=== PATIENT | female | born 1985 | race Caucasian/White ===

== ENCOUNTER 2017-09-27 08:46 | Emergency (ER) | payer OTHER ==
[2017-09-27 08:52] VITALS: BMI 24.7
[2017-09-27 08:57] VITALS: O2SAT 100
[2017-09-27] MEDS ORDERED: Sodium Chloride 0.9% 1,000 ML IV ONE (09:07)
--- NOTE | 2017-09-27 09:11 | C.PDOC ---
History Of Present Illness 32 year old female with a history of HTN, Right side kidney stones, presents to the ED with complaints of right sided flank pain gradually developed since yesterday associated with urinary frequency, dysuria. Pt admits, similar sx in past due to her previous kidney stone. Denies high fever, chills, recent illness , sore throat, CP, SOB, abd. pain, nausea, vomiting, hematuria, or any other complaints at this time. Ambulate to ED, appears in pain. Time Seen by Provider: 09/27/17 08:56 Chief Complaint (Nursing): Female Genitourinary History Per: Patient Past Medical History Reviewed: Historical Data, Nursing Documentation, Vital Signs Vital Signs: Last Vital Signs Temp 99.0 F 09/27/17 08:52 Pulse 136 H 09/27/17 08:52 Resp 17 09/27/17 08:52 BP 142/107 H 09/27/17 08:52 Pulse Ox 100 09/27/17 11:18 - Medical History PMH: HTN, Kidney Stones Family History: States: Unknown Family Hx - Social History Hx Tobacco Use: No Hx Alcohol Use: No Hx Substance Use: No - Immunization History Hx Tetanus Toxoid Vaccination: No Hx Influenza Vaccination: No Hx Pneumococcal Vaccination: No Review Of Systems Except As Marked, All Systems Reviewed And Found Negative. Constitutional: Negative for: Fever, Chills ENT: Negative for: Ear Pain, Ear Discharge, Nose Discharge, Throat Pain, Throat Swelling Cardiovascular: Negative for: Chest Pain, Palpitations Respiratory: Negative for: Cough, Shortness of Breath, Wheezing Gastrointestinal: Positive for: Nausea. Negative for: Vomiting, Abdominal Pain , Diarrhea Genitourinary: Positive for: Dysuria, Frequency. Negative for: Incontinence, Hematuria, Vaginal Discharge, Vaginal Bleeding Musculoskeletal: Positive for: Back Pain (Right flank) Neurological: Negative for: Weakness, Numbness, Altered Mental Status, Headache , Dizziness Physical Exam - Physical Exam Appears: Well, Non-toxic, No Acute Distress Skin: Normal Color, Warm, Dry, No Rash Eye(s): bilateral: PERRL Nose: No Flaring, No Discharge Oral Mucosa: Moist, No Drooling Throat: No Erythema, No Drooling Neck: Trachea Midline, Supple Cardiovascular: Rhythm Regular, No Murmur, No JVD Respiratory: Normal Breath Sounds, No Stridor, No Wheezing Gastrointestinal/Abdominal: Soft, Tenderness (mild suprapubic), No Distention, No Guarding, No Rebound Back: No CVA Tenderness, Other (Right flank tenderness) Extremity: Normal ROM, No Deformity, No Swelling Neurological/Psych: Oriented x3, Normal Speech ED Course And Treatment - Laboratory Results Result Diagrams: 09/27/17 09:33 09/27/17 09:33 Urine POC: Negative O2 Sat by Pulse Oximetry: 100 Pulse Ox Interpretation: Normal - CT Scan/US CT abd/pelvis Other Rad Studies (CT/US): Radiology Report Reviewed CT/US Interpretation: CT abdomen and pelvis. History: Right flank pain. Comparison: None available. Technique: Multiple contiguous axial images were performed through the abdomen and pelvis without the use of intravenous contrast. Subsequently, sagittal and coronal reformatted images were obtained. This CT exam was performed using one or more of the following dose reduction techniques: Automated exposure control, adjustment of the mA and/or kV according to patient size, and/or use of iterative reconstruction technique. Findings: Lung bases are preserved. No pleural or pericardial effusion. Question mild fatty infiltration of the liver. Clinical correlation. Gallbladder is grossly preserved. Spleen is preserved. Adrenal glands are preserved. Pancreas is preserved. Upper abdominal bowel is preserved. Right kidney: Moderate right renal hydronephrosis with perinephric fat stranding. There is a suggestion of a 6 millimeter calculus at the level of the distal right ureter concerning for possible obstructive calculus with resultant right renal hydronephrosis ; alternatively, this may represent a prominent vascular calcification. Clinical correlation. Additional punctate 1 millimeter calculus in the midpole of the right kidney. Left Kidney: Punctate 1 millimeter nonobstructive calculus in the midpole left kidney. No hydronephrosis. Thick- walled urinary bladder which may represent an underlying cystitis. Clinical correlation. Heterogeneous uterus and bilateral adnexa. Prominent fecal retention in the distal colon and rectum. Relative areas of underdistention in the transverse and descending colon. Appendix is partially imaged best seen on series 3, image 118, grossly preserved. Few shotty para-aortic and inguinal lymph nodes. Few shotty mesenteric lymph nodes. Mild degenerative changes in the spine. Impression: 1. Moderate right renal hydronephrosis with perinephric fat stranding. There is a suggestion of a 6 millimeter calculus at the level of the distal right ureter concerning for possible obstructive calculus with resultant right renal hydronephrosis ; alternatively, this may represent a prominent vascular calcification. Clinical correlation. In addition , if there is concern for pyelonephritis, consider correlation with a contrast- enhanced CT scan. 2. Thick-walled urinary bladder which may represent an underlying cystitis. Clinical correlation. Progress Note: Pt was OBS in ED for 2 hours and reports moderate improvement in sx. On re-evaluation, pt is aferile, hemodynamicaly stable. PulseOx 100% RA. ENT: no acute findings. neck: Supple, (-) meninegal sign, (-) carotid bruits. Lungs: CTA B/L, BS equal B/L. Abd: benign,(-) guarding, (-) rebound. Back: (- ) CVA tenderness. Neurologicaly intact. UA review (+) WBC, RBC. Blood work , mild leukocytosis with left shift. CT abd/pelvis: (+) 6 millimeter calculus at the level of the distal right ureter concerning for possible obstructive calculus with resultant right renal hydronephrosis ; alternatively, this may represent a prominent vascular calcification. Pt has clinical findings c/w UTI , Right kidney stone. Patient advisedon course of ds and ref. to f/u with Urology, PMD in 1-2 days for re-eavl. return to ED if any worsening or new changes. Disposition Counseled Patient/Family Regarding: Studies Performed, Diagnosis, Need For Followup, Rx Given - Disposition Referrals: Jeffrey Mejía MD [Staff Provider] - Disposition: HOME/ ROUTINE Disposition Time: 11:00 Condition: STABLE Additional Instructions: Encourage fluids Take medication as prescribed Follow up with PMD, Urology in 1-2 days for re-evaluation. Return to ED if any worsening or new changes. Prescriptions: Cefdinir [Omnicef] 300 mg PO BID #14 cap Tamsulosin [Flomax] 0.4 mg PO DAILY #14 cap traMADol [Ultram] 50 mg PO TID #7 tab Instructions: Urinary Tract Infections in Adults, Kidney Stones in Adults Forms: [employer] (Latvian) - Clinical Impression Clinical Impression: UTI (urinary tract infection), Kidney stone
[2017-09-27 09:24] LABS: HCG,QUALITATIVE URINE NEGATIVE (NEGATIVE); SQUAMOUS EPITHIAL 8 /hpf (0-5); URINE BACTERIA OCC (<OCC); URINE BILIRUBIN NEGATIVE (NEGATIVE); URINE BLOOD 3+ (NEGATIVE); URINE CLARITY Hazy (Clear); URINE COLOR Amber (YELLOW); URINE GLUCOSE (UA) NORMAL (Normal); URINE LEUKOCYTE ESTERASE 3+ Leu/uL (Negative); URINE PROTEIN 1+ mg/dL (NEGATIVE); URINE UROBILINOGEN NORMAL mg/dL (0.2-1.0)
[2017-09-27 09:45] LABS: BASO % 0.3 % (0.0-2.0); EOS % 0.3 % (0.0-4.0); HEMOGLOBIN 13.4 g/dL (11.0-16.0); LYMPH # 1.2 K/uL (1.0-4.3); LYMPH % 9.8 % (20.0-40.0); MEAN CELL VOLUME 87.5 fL (81.0-99.0); MEAN CORPUSCULAR HEMOGLOBIN 29.9 pg (27.0-31.0); MEAN CORPUSCULAR HGB CONC 34.2 g/dL (33.0-37.0); MEAN PLATELET VOLUME 7.3 fL (7.2-11.7); MONO # 1.1 K/uL (0.0-0.8); MONO % 8.7 % (0.0-10.0); NEUT # 10.2 K/uL (1.8-7.0); NEUT % 80.9 % (50.0-75.0); PLATELET COUNT 287 K/uL (130-400); RBC 4.49 Mil/uL (3.80-5.20); RED CELL DISTRIBUTION WIDTH 13.2 % (11.5-14.5); WHITE BLOOD COUNT 12.7 K/uL (4.8-10.8)
[2017-09-27] MEDS ORDERED: cefTRIAXone IV 1 gm in Dextros 50 ML IVPB ONE (09:52)
[2017-09-27] MEDS ORDERED: Sodium Chloride 0.9% 1,000 ML ONE (09:52)
[2017-09-27 09:56] LABS: ALBUMIN 4.2 g/dL (3.5-5.0); CALCIUM 9.3 mg/dl (8.6-10.4); GFR AFRICAN-AMERICAN > 60; GFR NON-AFRICAN AMERICAN > 60
[2017-09-27 10:00] LABS: ALT/SGPT 18 U/L (9-52); AST/SGOT 20 U/L (14-36); BLOOD UREA NITROGEN 7 mg/dL (7-17)
[2017-09-27 10:05] LABS: BANDS 2 % (0-2); LYMPHOCYTE 7 % (20-40); MONOCYTE 9 % (0-10); NEUTROPHIL 82 % (50-75); PLATELET ESTIMATE NORMAL (NORMAL); TOTAL CELLS COUNTED 100
--- NOTE | 2017-09-27 10:51 | CT ---
CT abdomen and pelvis History: Right flank pain. Comparison: None available. Technique: Multiple contiguous axial images were performed through the abdomen and pelvis without the use of intravenous contrast. Subsequently, sagittal and coronal reformatted images were obtained. This CT exam was performed using one or more of the following dose reduction techniques: Automated exposure control, adjustment of the mA and/or kV according to patient size, and/or use of iterative reconstruction technique. Findings: Lung bases are preserved. No pleural or pericardial effusion. Question mild fatty infiltration of the liver. Clinical correlation. Gallbladder is grossly preserved. Spleen is preserved. Adrenal glands are preserved. Pancreas is preserved. Upper abdominal bowel is preserved. Right kidney: Moderate right renal hydronephrosis with perinephric fat stranding. There is a suggestion of a 6 millimeter calculus at the level of the distal right ureter concerning for possible obstructive calculus with resultant right renal hydronephrosis ; alternatively, this may represent a prominent vascular calcification. Clinical correlation. Additional punctate 1 millimeter calculus in the midpole of the right kidney. Left Kidney: Punctate 1 millimeter nonobstructive calculus in the midpole left kidney. No hydronephrosis. Thick-walled urinary bladder which may represent an underlying cystitis. Clinical correlation. Heterogeneous uterus and bilateral adnexa. Prominent fecal retention in the distal colon and rectum. Relative areas of underdistention in the transverse and descending colon. Appendix is partially imaged best seen on series 3, image 118, grossly preserved. Few shotty para-aortic and inguinal lymph nodes. Few shotty mesenteric lymph nodes. Mild degenerative changes in the spine. Impression: 1. Moderate right renal hydronephrosis with perinephric fat stranding. There is a suggestion of a 6 millimeter calculus at the level of the distal right ureter concerning for possible obstructive calculus with resultant right renal hydronephrosis ; alternatively, this may represent a prominent vascular calcification. Clinical correlation. In addition, if there is concern for pyelonephritis, consider correlation with a contrast-enhanced CT scan. 2. Thick-walled urinary bladder which may represent an underlying cystitis. Clinical correlation.
[2017-09-27 11:37] VITALS: BP 116/79; PULSE 103; RESP 18; TEMP 99.1
== END 2017-09-27 11:37 | disposition home or self-care (01) ==
LOC: C.ER 08:46
DX: N13.2 Hydronephrosis with renal and ureteral calculous obstruction (principal); N39.0 Urinary tract infection, site not specified; Z87.442 Personal history of urinary calculi
CPT/HCPCS: 74176; 80053; 81001; 84703; 85025; 87086; 87181; 96365; 96375; 99284; J0696; J1885; J7040